=== PATIENT | female | born 2000 | race Two or more races ===

== ENCOUNTER → 2022-10-12 | Emergency (ER) | payer BC ==
[~2022-10-12] VITALS: Ht 162.6 cm; Wt 72.6 kg
[~2022-10-12] MED LIST: AMOX-CLAV 875-1 EACH PO; KETO10TA2 PO
== END | disposition home or self-care (01) ==
LOC: ER 08:09 → EDBD 08:09 → ER 10:20
DX: J03.90 Acute tonsillitis, unspecified (principal); Z20.822 Contact with and (suspected) exposure to COVID-19